=== PATIENT | male | born 1975 | race Caucasian/White ===

== ENCOUNTER 2017-08-15 10:04 | Emergency (ER) | payer BC ==
--- NOTE | 2017-08-15 11:34 | UC ---
Hand/Wrist HPI - HPI Summary HPI Summary: Patient has had left distal thumb pain for the past 3 days, he denies any infjry , slight erythema and swelling noted. no open areas, nail is intact, no bruising. - History Of Current Complaint Chief Complaint: UCUpperExtremity Stated Complaint: LEFT THUMB PAIN Time Seen by Provider: 08/15/17 10:19 Hx Obtained From: Patient ?: No Onset/Duration: Sudden Onset, Lasting Days Severity Initially: Moderate Severity Currently: Moderate Character Of Pain: Aching, Throbbing Alleviating: Nothing Associated Signs And Symptoms: Positive: Redness - Allergies/Home Medications Allergies/Adverse Reactions: Allergies Allergy/AdvReac Type Severity Reaction Status Date / Time No Known Allergies Allergy Verified 08/15/17 10:58 Home Medications: Home Medications Ibuprofen TAB* [Advil TAB*] 400 mg PO Q6H PRN 08/15/17 [History Confirmed ] Naproxen TAB* [Naprosyn 250 mg TAB*] 1,000 mg PO ONCE 08/15/17 [History Confirmed 08/15/17] PMH/Surg Hx/FS Hx/Imm Hx Previously Healthy: Yes - Surgical History Surgical History: Yes Surgery Procedure, Year, and Place: Left Elbow Fracture, 2013, [place] - Social History Alcohol Use: Weekly Substance Use Type: None Smoking Status (MU): Never Smoked Tobacco - Immunization History Most Recent Influenza Vaccination: Not the Season Review of Systems Constitutional: Negative Skin: Other - redness Eyes: Negative ENT: Negative Respiratory: Negative Cardiovascular: Negative Gastrointestinal: Negative Genitourinary: Negative Motor: Negative Neurovascular: Negative Musculoskeletal: Negative Neurological: Negative Psychological: Negative Is Patient Immunocompromised?: No All Other Systems Reviewed And Are Negative: Yes Physical Exam Triage Information Reviewed: Yes Appearance: Well-Appearing, Well-Nourished, Pain Distress Vital Signs: Initial Vital Signs Temp 98.1 F 08/15/17 10:56 Pulse 96 08/15/17 10:56 Resp 16 08/15/17 10:56 BP 162/106 08/15/17 10:56 Pulse Ox 98 08/15/17 10:56 Vital Signs Reviewed: Yes Eye Exam: Normal ENT Exam: Normal Dental Exam: Normal Neck exam: Normal Respiratory Exam: Normal Respiratory: Positive: Chest non-tender, Lungs clear, Normal breath sounds Cardiovascular Exam: Normal Cardiovascular: Positive: RRR, No Murmur, Pulses Normal Abdominal Exam: Normal Abdomen Description: Positive: Nontender, No Organomegaly, Soft Bowel Sounds: Positive: Present Musculoskeletal Exam: Normal Musculoskeletal: Positive: Strength Intact, ROM Intact, Edema @ - tip of left thumb Neurological Exam: Normal Psychological Exam: Normal Skin: Positive: Other - nild erythema, no open areas on left thumb Hand/Wrist Course/Dx - Course Course Of Treatment: hx obtained, exam performed ,meds reviewed, xray obtained. treated for possilbe cellulitis vs tendontiis - Differential Dx/Diagnosis Differential Diagnosis/HQI/PQRI: Bursitis, Contusion, Dislocation, Fracture, Gout, Infection, Tendonitis Provider Diagnoses: thumb pain, left. erythema. edema of thumb Discharge - Discharge Plan Condition: Stable Disposition: HOME Patient Education Materials: Cellulitis (ED) Referrals: Cb Hodges DO [Primary Care Provider] - Additional Instructions: 1. take the medication as prescribed 2. Continue with the Naproxen twice a day for the next 2-3 weeks, 3. here is some ideas for stretches to help a pinched nerve The C6 is your sixth cervical vertebra, and a pinched nerve can result in a variety of symptoms including shoulder, thumb, index finger, neck and/or scapula pain. Numbness and tingling down the outer portion of your arm may occur along with decreased ability to use the arm. Performing a variety of exercises for a C6 pinched nerve can return this area to a healthier level while minimizing symptoms. Check with your doctor first. Benefits Exercises for a C6 pinched nerve provide many benefits. Exercises can lower pain and inflammation levels, lower your risk of experiencing a cervical injury , decrease neck stiffness, and prevent arthritis or joint deterioration from developing, according to [employer]. Exercises will improve athletic performance, help you regain or improve range of motion, strengthen neck muscles , enhance neck health appearance and enhance performance of everyday activities such as turning to see while driving. Neck Stretch Increase your neck flexion by doing an exercise for a C6 pinched nerve known as a sideways stretch. Do this exercise while either standing or sitting upright. If standing, you may want to hold onto a firm chair for balance purposes. Slowly move your head to the right side as if touching your right ear to your right shoulder, according to [employer] and the [facility]. Stretch as far as possible without discomfort. Hold this position for 10 seconds. Slowly return your head to the straight-ahead position. Repeat this exercise nine times. Do the exercise again to your left side. Do not move your shoulders or turn your head throughout the exercise. Upper Body Stretch An upper body stretch can be used as an exercise for a C6 pinched nerve. For a neck stretching maneuver, stand upright with your feet shoulder-width apart. Slowly and gently place your hands on the back of your head. Slowly bend your upper body to the right, trying to point your left elbow toward the ceiling. Hold this position for 10 seconds. Slowly return your upper body to the original position. Rest 10 seconds. Repeat this exercise five times. Do the exercise again to your left side. Remember not to move your hips or waist during this exercise. Neck Strengthening Isometrics can be used as strengthening exercises for a C6 pinched nerve. Isometrics involve muscle contractions that apply force without lengthening or moving the joint, according to [employer]. Do an isometric exercise that increases cervical strength by placing your right hand onto your right scientology. Slowly but firmly try to turn your head to your right side. Use your right hand to press against your head to resist any head movement. Hold this position for five seconds. Release the tension and relax 10 seconds. Repeat this exercise five times. Do the exercise again using your left hand, resisting movement to your left. Considerations Remember to breathe normally throughout your exercises for a C6 pinched nerve to relax your muscles and achieve as much range of motion as possible, according to [employer]. Use gentle, deliberately slow movements to prevent injury while exercising your neck, according to [employer]. Remember to stretch only until you feel a mild stretch, and stop if pain occurs.
--- NOTE | 2017-08-15 12:08 | RAD ---
Indication: Throbbing pain at the interphalangeal joint for multiple days without known injury. Comparison: No relevant prior exams available on the [facility] for comparison. Technique: AP, lateral, and oblique views LEFT thumb. REPORT AND IMPRESSION: Soft tissue swelling greatest distally. No conspicuous foreign body, fracture, or malalignment. No significant arthropathic change.
[2017-08-15 12:09] VITALS: BP 142/78
== END 2017-08-15 12:17 | disposition home or self-care (01) ==
LOC: UCCORT 10:04
DX: M79.645 Pain in left finger(s) (principal); L53.9 Erythematous condition, unspecified; R60.0 Localized edema
CPT/HCPCS: 99202; G0463

== ENCOUNTER 2017-11-11 07:04 | Emergency (ER) | payer BC ==
[2017-11-11 07:19] VITALS: BP 155/94
--- NOTE | 2017-11-11 07:41 | UC ---
Dizzy HPI HPI Summary: dizziness x 1 day sudden onset since 3 am this morning + nausea and vomiting , worse with head movement no fever, no chills, no sinus pain , no ear pain - History Of Current Complaint Chief Complaint: UCGeneralIllness Stated Complaint: DIZZINESS, NAUSEA Time Seen by Provider: 11/11/17 07:28 Hx Obtained From: Patient Onset/Duration: Sudden Onset, Lasting Days - 1, Still Present Timing: Constant Severity Initially: Moderate Severity Currently: Moderate Character: Head Spinning, Room Spinning, Lightheaded, Weak, Dizzy Aggravating Factor(s): Position Change, Supine To Erect, Change In Head Position Alleviating Factor(s): Nothing Associated Signs And Symptoms: Positive: Nausea, Vomiting. Negative: Diaphoresis, Tinnitus, Chest Pain, SOB, Palpitations, Unsteady Gait, Visual Changes, Decreased Oral Intake, Change In Medication, Change In Diet, OTC Medications - Allergies/Home Medications Allergies/Adverse Reactions: Allergies Allergy/AdvReac Type Severity Reaction Status Date / Time No Known Allergies Allergy Verified 11/11/17 07:14 PMH/Surg Hx/FS Hx/Imm Hx Previously Healthy: Yes - Surgical History Surgical History: Yes Surgery Procedure, Year, and Place: Left Elbow Fracture, 2013, [place] - Family History Known Family History: Negative: Diabetes - Social History Alcohol Use: Occasionally Substance Use Type: None Smoking Status (MU): Never Smoked Tobacco - Immunization History Most Recent Influenza Vaccination: Not the 2016/2017 Season Review of Systems Constitutional: Negative Skin: Negative Eyes: Negative ENT: Negative Respiratory: Negative Cardiovascular: Negative Gastrointestinal: Vomiting, Nausea Neurological: Headache, Weakness Is Patient Immunocompromised?: No All Other Systems Reviewed And Are Negative: Yes Physical Exam Triage Information Reviewed: Yes Appearance: Well-Appearing, Well-Nourished, Pain Distress Vital Signs: Initial Vital Signs Temp 97.7 F 11/11/17 07:14 Pulse 87 11/11/17 07:14 Resp 16 11/11/17 07:14 BP 155/94 11/11/17 07:14 Pulse Ox 98 11/11/17 07:14 Vital Signs Reviewed: Yes Eyes: Positive: Conjunctiva Clear ENT: Positive: Normal ENT inspection, Hearing grossly normal, Pharynx normal, TMs normal. Negative: Nasal drainage, TM bulging, TM dull, TM red, Tonsillar swelling, Tonsillar exudate, Trismus, Muffled voice, Hoarse voice, Sinus tenderness Neck: Positive: Supple, Nontender, No Lymphadenopathy Respiratory: Positive: Chest non-tender, Lungs clear, Normal breath sounds Cardiovascular: Positive: RRR, No Murmur, Pulses Normal Abdominal Exam: Normal Abdomen Description: Positive: Nontender, Soft Bowel Sounds: Positive: Present Musculoskeletal: Positive: Strength Intact Neurological: Positive: Alert Skin Exam: Normal UC Physical Exam Vital Signs On Initial Exam: Initial Vitals Temp Pulse Resp BP Pulse Ox 97.7 F 87 16 155/94 98 11/11/17 07:14 11/11/17 07:14 11/11/17 07:14 11/11/17 07:14 11/11/17 07:14 - Neurological Exam Neurological: Normal, Sensory/Motor Intact, Alert, Oriented to Person Place, Time, CN Intact II-III, Normal Gait, Speech Normal Dizzy Course/Dx - Differential Dx/Diagnosis Provider Diagnoses: vertigo Discharge - Discharge Plan Condition: Stable Disposition: HOME Prescriptions: Meclizine TAB* [Antivert 12.5 TAB*] 25 mg PO TID PRN #15 tab PRN Reason: Dizziness Patient Education Materials: Vertigo (ED) Referrals: Cb Hodges DO [Primary Care Provider] - 5 Days
== END 2017-11-11 07:41 | disposition home or self-care (01) ==
LOC: UCCORT 07:04
DX: R42 Dizziness and giddiness (principal); R11.2 Nausea with vomiting, unspecified; R51 Headache; R53.1 Weakness
CPT/HCPCS: 99212; G0463

== ENCOUNTER 2018-08-03 09:46 | Emergency (ER) | payer BC ==
[2018-08-03 10:02] VITALS: BP 159/94
--- NOTE | 2018-08-03 10:14 | ED ---
Skin Complaint - HPI Summary HPI Summary: 43-year-old male presents with 2 day history of tender, swollen, erythematous lesion to his anterior thigh. States the lesion has progressively increased in size and this morning he noticed some redness extending from the margins of the lesion. Denies any fever, chills, or drainage. - History of Current Complaint Chief Complaint: UCSkin Time Seen by Provider: 08/03/18 10:07 Stated Complaint: LEFT LEG SKIN COMPLAINT Hx Obtained From: Patient Onset/Duration: Started Days Ago - 2 Timing: Constant Onset Severity: Mild Current Severity: Mild - 2 Pain Intensity: 6 Skin Location: Leg Character: Redness, Painful Aggravating Symptom(s): Touch Alleviating Symptom(s): Nothing Associated Signs & Symptoms: Negative - Allergy/Home Medications Allergies/Adverse Reactions: Allergies Allergy/AdvReac Type Severity Reaction Status Date / Time GRASS, TREES , POLLEN Allergy Unknown Unknown Uncoded 08/03/18 09:56 Reaction Details PMH/Surg Hx/FS Hx/Imm Hx Previously Healthy: Yes - Noncontributory PMH - Surgical History Surgery Procedure, Year, and Place: Left Elbow Fracture, 2014, [place] Hx Anesthesia Reactions: No Infectious Disease History: No Infectious Disease History: Denies: Traveled Outside the [place] in Last 30 Days - Family History Family History: Noncontributory - Social History Occupation: Employed Full-time Lives: With Family Alcohol Use: Occasionally Substance Use Type: Reports: None Smoking Status (MU): Never Smoked Tobacco Review of Systems Constitutional: Negative Cardiovascular: Negative Respiratory: Negative Skin: Other - See HPI All Other Systems Reviewed And Are Negative: Yes Physical Exam Triage Information Reviewed: Yes Vital Signs On Initial Exam: Initial Vitals Temp Pulse Resp BP Pulse Ox 98.3 F 80 17 159/94 100 08/03/18 09:57 08/03/18 09:57 08/03/18 09:57 08/03/18 09:57 08/03/18 09:57 Vital Signs Reviewed: Yes Appearance: Positive: Well-Appearing, No Pain Distress, Well-Nourished Skin: Positive: Warm, Skin Color Reflects Adequate Perfusion, Dry, Other - 2 cm area of erythema, tenderness, and induration with mild erythema extending approximately 3 cm from wound margins to anterior left thigh. No fluctuance or drainage noted. Respiratory/Lung Sounds: Positive: Clear to Auscultation, Breath Sounds Present Cardiovascular: Positive: RRR, Pulses are Symmetrical in both Upper and Lower Extremities Musculoskeletal: Positive: Normal Neurological: Positive: Alert, Oriented to Person Place, Time Diagnostics - Vital Signs Vital Signs Temp Pulse Resp BP Pulse Ox 08/03/18 09:57 98.3 F 80 17 159/94 100 - Laboratory Lab Statement: Any lab studies that have been ordered have been reviewed, and results considered in the medical decision making process. Course/Dx - Course Course Of Treatment: 43-year-old male with 2 day history of tender, erythematous lesion to his left anterior thigh. Exam reveals a 2 cm circular area of erythema and induration without fluctuance with some surrounding cellulitis that extends approximately 3 cm from the wound margins. Afebrile. Nontoxic appearing. Will start patient on Bactrim DS twice a day for 7 days. Warning symptoms that would require immediate evaluation in the emergency room reviewed with patient. Verbalizes understanding and agrees with plan of care. - Differential Diagnoses - Skin Complaint Differential Diagnoses: Abscess - Diagnoses Provider Diagnoses: Abscess, Elevated blood pressure reading Discharge - Sign-Out/Discharge Documenting (check all that apply): Patient Departure All imaging exams completed and their final reports reviewed: No Studies - Discharge Plan Condition: Stable Disposition: HOME Prescriptions: Sulfamethox/Trimethoprim DS* [Bactrim DS 800/160 TAB*] 1 tab PO BID #14 tab Patient Education Materials: Abscess (ED) Referrals: No Primary Care Phys,NOPCP [Primary Care Provider] - [facility]Outside] - 3 Days Additional Instructions: Start Bactrim DS 1 tab twice daily for 7 days. Apply hot packs to the affected area for 15 minutes at least 4 times a day. Take over the counter acetaminophen (Tylenol) or ibuprofen (Advil, Motrin) according to directions as needed for pain. Seek immediate medical attention in the emergency room if you develop fever greater than 100.5 F, have shaking chills, the redness spreads, you have increased pain, increased swelling, or any worsening of symptoms. Your blood pressure in the clinic today was elevated. I recommend that you contact the physician referral service at [phone] within 3 days to get assistance with establishing with a primary care provider to be rechecked within the next 4 weeks or contact one of the primary care providers in the [place] area on the list that was provided to you. - Billing Disposition and Condition Condition: STABLE Disposition: Home
== END 2018-08-03 10:35 | disposition home or self-care (01) ==
LOC: UCCORT 09:46
DX: L02.416 Cutaneous abscess of left lower limb (principal)
CPT/HCPCS: 99212; G0463